=== PATIENT | female | born 1980 ===

== ENCOUNTER 2018-06-13 07:27 | Inpatient (IN) | payer OTHER ==
[~2018-06-13] VITALS: Ht 158.1 cm; Wt 94.5 kg
[2018-06-13] VITALS (33 sets, daily range): BP systolic 114–159; BP diastolic 64–103; PULSE 79–102; TEMP 97.7–98.8
[~2018-06-13 07:27] MED LIST: FOLIC ACID 40400 MCG PO
[2018-06-13 08:20] LABS: HEMOGLOBIN 11.1 g/dl (12.5-16.0); MEAN CELL VOLUME 88 fl (80.0-100.0); MEAN CORPUSCULAR HEMOGLOBIN 29 pg (27.0-31.0); MEAN CORPUSCULAR HGB CONC 33 g/dl (33.0-37.0); MEAN PLATELET VOLUME 11.6 fl (7.4-10.4); PLATELET COUNT 155 K/mm3 (130-400); RED BLOOD COUNT 3.78 M/mm3 (4.10-5.30); REDCELL DISTRIBUTION WIDTH-CV 14.1 % (11.5-14.5)
[2018-06-13 08:24] LABS: HEMATOCRIT 33.2 % (37.0-47.0)
[2018-06-13 08:37] LABS: BAND 4 % (0-10); BASOPHIL 1 % (0-2); EOSINOPHIL 1 % (0-4); LYMPHOCYTE 22 % (20.0-51.0); NEUTROPHILS 67 % (42.0-75.2); PLATELET ESTIMATE NORMAL (NORMAL)
[2018-06-13 08:41] LABS: ANISOCYTOSIS 1+; STOMATOCYTE 1+
[2018-06-13 08:42] LABS: POLYCHROMASIA 1+
[2018-06-14] VITALS: BP 118/71; PULSE 89; TEMP 97.8
[2018-06-14 04:00] VITALS: BP 121/74; PULSE 81; TEMP 97.5
[2018-06-14 06:39] LABS: HEMATOCRIT 28.8 % (37.0-47.0); HEMOGLOBIN 9.4 g/dl (12.5-16.0)
[2018-06-14 07:00] VITALS: BP 117/72; PULSE 90; TEMP 98
[2018-06-14 16:50] VITALS: BP 124/78; PULSE 81; TEMP 97.4
[2018-06-14 20:00] VITALS: BP 125/69; PULSE 87; TEMP 97.8
[2018-06-15 07:55] VITALS: BP 135/73; PULSE 88; TEMP 98.4
[2018-06-15] MEDS ORDERED: IBU600 MG PO (08:50)
[2018-06-15] MEDS ORDERED: PERCOCET 325 MG1 TA2 PO (08:50)
[2018-06-15 18:48] VITALS: BP 140/80; PULSE 83; TEMP 98.6
[2018-06-16 11:24] VITALS: BP 124/79; PULSE 100
== END 2018-06-16 12:25 | disposition home or self-care (01) | DRG 788 ==
LOC: LDR 07:27 → OB 07:27 → LDR 08:17 → OB 18:30
PROVIDERS: Obstetrics & Gynecology
PROC: 10D00Z1 Extraction of Products of Conception, Low, Open Approach (ICD-10-PCS; principal; 2018-06-13)
PROC: 3E033VJ Introduction of Other Hormone into Peripheral Vein, Percutaneous Approach (ICD-10-PCS; 2018-06-13)
DX: O99.824 Streptococcus B carrier state complicating childbirth (principal); O76 Abnormality in fetal heart rate and rhythm complicating labor and delivery; O77.0 Labor and delivery complicated by meconium in amniotic fluid; Z37.0 Single live birth; Z3A.40 40 weeks gestation of pregnancy; O69.81X0 Labor and delivery complicated by cord around neck, without compression, not applicable or unspecified
CPT/HCPCS: J1885; J2175; J2370; J2405; J2540; J2590; J3010; J7120